=== PATIENT | male | born 1980 | race Caucasian/White ===

== ENCOUNTER 2022-05-16 11:50 | Emergency (ER) | payer MEDICAID ==
[~2022-05-16] VITALS: Ht 182.9 cm; Wt 92.7 kg
[2022-05-16] MEDS ORDERED: BICT1TAB PO (11:58)
[2022-05-16 14:33] VITALS: BP 119/74
== END 2022-05-16 16:14 | disposition home or self-care (01) ==
LOC: EMS 11:52
DX: Z76.0 Encounter for issue of repeat prescription (principal); Z79.899 Other long term (current) drug therapy
CPT/HCPCS: 99281; Z7502